=== PATIENT | female | born 1980 | race Caucasian/White ===

== ENCOUNTER → 2017-04-11 | Outpatient (REF) | payer OTHER ==
[~2017-04-11] MED LIST: MACR100C43 PO; PYRI1TAB5 PO
== END ==
LOC: M LAB REF 09:06
PROVIDERS: ATTEND Physician Assistant
DX: R30.0 Dysuria (principal)

== ENCOUNTER 2017-04-12 10:42 | Emergency (ER) | payer OTHER ==
[~2017-04-12] VITALS: Ht 157.5 cm; Wt 68.2 kg
[2017-04-12 10:42] VITALS: BP 123/73
[2017-04-12] MEDS ORDERED: PYRI1TAB5 PO (10:48)
[2017-04-12] MEDS ORDERED: MACR100C43 PO (10:48)
[2017-04-12] MEDS ORDERED: KETOROLAC TROMETHAMINE 10 MG TAB PO ONE (11:45)
[2017-04-12 12:03] LABS: BASO % 0.7 % (0.0-1.0); EOS # 0.2 K/mm3 (0.0-0.50); EOS % 5.3 % (0.0-3.0); LARGE UNSTAINED CELL # 0.1 K/mm3 (0.0-0.4); LARGE UNSTAINED CELL % 1.5 % (0.0-4.0); LYMPH # 1.2 K/mm3 (1.5-4.5); LYMPH % 25.1 % (24.0-44.0); MEAN CORPUSCULAR HEMOGLOBIN 29.8 pg (27.0-33.0); MEAN CORPUSCULAR HGB CONC 33.6 g/dl (32.0-36.5); MEAN CORPUSCULAR VOLUME 88.7 fl (80.0-96.0); MONO # 0.2 K/mm3 (0.0-0.8); MONO % 4.4 % (0.0-5.0); NEUTROPHILS # 2.8 K/mm3 (1.8-7.7); NEUTROPHILS % 62.9 % (36.0-66.0); PLATELET COUNT, AUTOMATED 222 k/mm3 (150-450); RED CELL DISTRIBUTION WIDTH 12.7 % (11.5-14.5); WHITE BLOOD COUNT 4.4 K/mm3 (4.0-10.0)
[2017-04-12 12:26] LABS: ANION GAP 5 MEQ/L (8-16); BLOOD UREA NITROGEN 9 MG/DL (7-18); CALCIUM LEVEL 9.2 MG/DL (8.5-10.1); CARBON DIOXIDE LEVEL 29 MEQ/L (21-32); CHLORIDE LEVEL 107 MEQ/L (98-107); CREATININE FOR GFR 0.77 MG/DL (0.55-1.02); GLOMERULAR FILTRATION RATE > 60.0 (>60); GLUCOSE, FASTING 89 MG/DL (70-105); POTASSIUM SERUM 4.2 MEQ/L (3.5-5.1); SODIUM LEVEL 141 MEQ/L (136-145)
--- NOTE | 2017-04-12 13:06 | REP ---
BILATERAL RENAL ULTRASOUND: 04/12/2017 CLINICAL HISTORY: Left flank pain. UTI diagnosed yesterday. Sonographic evaluation of the kidneys performed with no prior studies. The right kidney is 10.2 x 4.4 x 5.4 cm, and the left kidney is 9.9 x 4.6 x 4.5 cm. The cortical thickness and echogenicity are normal with the renal cortex less echogenic than the adjacent liver. There is no stone, cyst, solid mass, or hydronephrosis for either kidney. No perinephric edema or fluid. Bladder is not distended and cannot be evaluated. IMPRESSION: 1. Normal size and morphology for the kidneys with cortical thickness and echogenicity normal and no hydronephrosis, cyst, stone, or solid mass. No perinephric fluid. Bladder is empty and cannot be evaluated. Signed by Colton Us MD 04/12/2017 10:17 P
== END 2017-04-12 13:27 | disposition home or self-care (01) ==
LOC: M ED 10:42
DX: R30.0 Dysuria (principal); Z87.891 Personal history of nicotine dependence; Z79.899 Other long term (current) drug therapy

== ENCOUNTER → 2017-10-01 | Outpatient (CLI) | payer OTHER ==
[2017-10-02 12:40] LABS: HEPATITIS B SURFACE ANTIGEN NEGATIVE (NEGATIVE)
[2017-10-02 13:08] LABS: HEPATITIS C VIRUS ABY INDEX 0.1 INDEX (<0.8)
[2017-10-02 13:08] LABS: HIV 1&2 SCREEN CENTAUR NEGATIVE (NEGATIVE)
== END ==
LOC: M WUC 09:41
DX: Z11.3 Encounter for screening for infections with a predominantly sexual mode of transmission (principal)
CPT/HCPCS: 87340

== ENCOUNTER → 2018-08-22 | Outpatient (CLI) | payer OTHER ==
[2018-08-22 14:16] LABS: FREE T4 1.01 NG/DL (0.76-1.46); HCG, SERUM QUANTITATIVE < 1.0 MIU/ML; PROLACTIN 7.5 NG/ML
== END ==
LOC: M WUC 09:19
DX: N64.3 Galactorrhea not associated with childbirth (principal)
CPT/HCPCS: 84146

== ENCOUNTER → 2018-10-06 | Outpatient (CLI) | payer OTHER ==
[2018-10-08 10:54] LABS: HEPATITIS B SURFACE ANTIGEN NEGATIVE (NEGATIVE); HEPATITIS C VIRUS ABY INDEX 0.1 INDEX (<0.8); HIV 1&2 SCREEN CENTAUR NEGATIVE (NEGATIVE)
== END ==
LOC: M WUC 10:25
PROVIDERS: ATTEND Nurse Practitioner Women's Health
DX: N64.4 Mastodynia (principal)

== ENCOUNTER 2018-10-17 20:26 | Emergency (ER) | payer OTHER ==
[~2018-10-17] VITALS: Ht 157.5 cm; Wt 75.0 kg
[2018-10-17] MEDS ORDERED: ASPI325T25 PO (20:39)
[2018-10-17 21:00] LABS: BASO % 0.6 % (0.0-1.0); EOS # 0.3 10^3/uL (0.0-0.50); EOS % 4.2 % (0.0-3.0); HEMATOCRIT 37.5 % (36.0-47.0); LYMPH # 1.9 10^3/uL (1.5-4.5); LYMPH % 25.8 % (24.0-44.0); MEAN CORPUSCULAR HEMOGLOBIN 28.4 pg (27.0-33.0); MEAN CORPUSCULAR VOLUME 88.7 fl (80.0-96.0); MONO # 0.5 10^3/uL (0.0-0.8); MONO % 7.4 % (0.0-5.0); NEUTROPHILS # 4.5 10^3/uL (1.8-7.7); NEUTROPHILS % 61.9 % (36.0-66.0); PLATELET COUNT, AUTOMATED 235 10^3/uL (150-450); RED BLOOD COUNT 4.23 10^6/uL (4.00-5.40); WHITE BLOOD COUNT 7.2 10^3/uL (4.0-10.0)
[2018-10-17] MEDS ORDERED: dexameTHASONE 20 MG/5 ML VIAL (J1100) IV ONE (21:00)
[2018-10-17 21:21] LABS: HCG, SERUM QUALITATIVE NEGATIVE (NEGATIVE)
[2018-10-17 21:30] LABS: BLOOD UREA NITROGEN 18 MG/DL (7-18); CALCIUM LEVEL 8.2 MG/DL (8.5-10.1); CARBON DIOXIDE LEVEL 28 MEQ/L (21-32); CHLORIDE LEVEL 108 MEQ/L (98-107); CPK CREATINE PHOSPHOKINASE 102 U/L (26-192); CREATININE FOR GFR 0.85 MG/DL (0.55-1.30); GLOMERULAR FILTRATION RATE > 60.0 (>60); GLUCOSE, FASTING 112 MG/DL (70-100); MB/CK RELATIVE INDEX 1.18 (< OR =4); POTASSIUM SERUM 3.4 MEQ/L (3.5-5.1); SODIUM LEVEL 140 MEQ/L (136-145); TROPONIN I < 0.02 NG/ML (< 0.10)
[2018-10-17] MEDS ORDERED: chlorproMAZINE INJ 50MG/2ML AMP (J3230) IM ONE (22:15)
[2018-10-17] MEDS ORDERED: KETOROLAC 30 MG/ML VIAL (J1885) IV ONE (22:30)
[2018-10-17] MEDS ORDERED: NS 500 ML IV ONE (22:30)
[2018-10-17] MEDS ORDERED: POTASSIUM CHLORIDE 10 MEQ SR TABLET PO ONE (22:30)
[2018-10-18 00:25] VITALS: BP 94/57
--- NOTE | 2018-10-18 06:37 | ECGEPIP ---
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
--- NOTE | 2018-10-19 09:01 | REP ---
CHEST, TWO VIEWS: There is no evidence of acute infiltrate. No pleural effusion is seen. The heart is normal in size. The mediastinal silhouette is unremarkable. The visualized osseous structures are intact. IMPRESSION: No acute pulmonary disease. Electronically Signed by Howard Morgan MD 10/19/2018 06:45 P
== END 2018-10-18 00:26 | disposition home or self-care (01) ==
LOC: M ED 20:26
DX: R07.89 Other chest pain (principal); Z79.899 Other long term (current) drug therapy
CPT/HCPCS: 36415; 71046; 80048; 82550; 82553; 84484; 84703; 85025; 93005; 93041; 94760; 96374; 99285; J1885

== ENCOUNTER → 2020-06-17 | Outpatient (CLI) | payer SELFPAY ==
[~2020-06-17] MED LIST changes: +ASPI-255 PO
== END ==
LOC: M LABSMTC 13:35
PROVIDERS: ATTEND Pediatrics
DX: Z20.828 Contact with and (suspected) exposure to other viral communicable diseases (principal)

== ENCOUNTER → 2020-09-16 | Outpatient (CLI) | payer OTHER ==
[2020-09-16 07:36] LABS: HEMATOCRIT 41.3 % (36.0-47.0); MEAN CORPUSCULAR HEMOGLOBIN 28.3 pg (27.0-33.0); MEAN CORPUSCULAR HGB CONC 31.5 g/dl (32.0-36.5); PLATELET COUNT, AUTOMATED 237 10^3/uL (150-450); RED BLOOD COUNT 4.59 10^6/uL (4.00-5.40); WHITE BLOOD COUNT 3.7 10^3/uL (4.0-10.0)
[2020-09-16 08:09] LABS: ALBUMIN 3.9 GM/DL (3.2-5.2); ALT/SGPT 21 U/L (12-78); BILIRUBIN,TOTAL 0.5 MG/DL (0.2-1.0); BLOOD UREA NITROGEN 15 MG/DL (7-18); CALCIUM LEVEL 8.9 MG/DL (8.5-10.1); CARBON DIOXIDE LEVEL 29 MEQ/L (21-32); CHLORIDE LEVEL 107 MEQ/L (98-107); CHOLESTEROL LEVEL 151 MG/DL (<200); CHOLESTEROL RISK RATIO 2.323 (<5); CREATININE FOR GFR 0.91 MG/DL (0.55-1.30); FREE T4 0.98 NG/DL (0.76-1.46); GLOMERULAR FILTRATION RATE > 60.0 (>58); GLUCOSE, FASTING 89 MG/DL (70-100); HDL CHOLESTEROL 65 MG/DL (>40); LDL CHOLESTEROL 74 MG/DL (<100); NON-HDL-C 86 MG/DL; SODIUM LEVEL 140 MEQ/L (136-145); TRIGLYCERIDES LEVEL 60 MG/DL (<150)
[2020-09-16 11:23] LABS: TOTAL 25(OH) VITAMIN D 28.8 NG/ML (30.0-100.0)
[2020-09-16 12:00] LABS: HEMOGLOBIN A1c 5.2 %
== END ==
LOC: M LAB 06:43
PROVIDERS: ATTEND Physician Assistant
DX: R00.2 Palpitations (principal); Z13.1 Encounter for screening for diabetes mellitus; Z13.220 Encounter for screening for lipoid disorders

== ENCOUNTER → 2020-10-11 | Outpatient (REF) | payer OTHER | LOC: M SFHCWAGY 17:16 | PROVIDERS: ATTEND Advanced Practice Midwife | DX: Z12.4 Encounter for screening for malignant neoplasm of cervix (principal); Z01.419 Encounter for gynecological examination (general) (routine) without abnormal findings ==

== ENCOUNTER → 2020-11-09 | Outpatient (CLI) | payer OTHER ==
--- NOTE | 2020-11-09 16:46 | REPMRS ---
Patient History The patient states she had a clinical breast exam in October 2020. No known family history of cancer. 3D TOMOSYNTHESIS WAS PERFORMED. [facility] lifetime risk for breast cancer is 14.6%. Volpara breast density b. Digital Woman Screen Mammo: November 09, 2020 - Exam #: [id number] Bilateral CC and MLO view(s) were taken. Technologist: Clarice Henning RT FINDINGS: There are scattered fibroglandular densities. There has been no change in the appearance of the mammogram from the prior studies. There is a mild amount of residual fibroglandular tissue which is fairly symmetric. There is no interval development of dominant mass, architectural distortion, or clustered microcalcification suggestive of malignancy. Assessment: BI-RADS/ACR category 1 mammogram. Negative Mammogram. Recommendation Routine screening mammogram in 1 year (for women over age 40). This mammogram was interpreted with the aid of an FDA-approved computer-aided dectection system. Electronically Signed By: Howard Morgan MD 11/09/20 [id number]
== END ==
LOC: M WHC 15:51
PROVIDERS: ATTEND Advanced Practice Midwife
DX: Z12.31 Encounter for screening mammogram for malignant neoplasm of breast (principal)

== ENCOUNTER → 2021-05-25 | Outpatient (REF) | LOC: M EMP 13:32 | PROVIDERS: ATTEND Family Medicine | DX: Z11.52 Encounter for screening for COVID-19 (principal) ==

== ENCOUNTER → 2021-10-19 | Outpatient (REF) | LOC: M LABSMTC 10:19 | PROVIDERS: ATTEND Family Medicine | DX: Z20.822 Contact with and (suspected) exposure to COVID-19 (principal) ==

== ENCOUNTER → 2022-01-16 | Outpatient (REF) | payer OTHER | LOC: M PLALAB 13:23 | PROVIDERS: ATTEND Advanced Practice Midwife | DX: Z12.4 Encounter for screening for malignant neoplasm of cervix (principal); R87.810 Cervical high risk human papillomavirus (HPV) DNA test positive | CPT/HCPCS: 87624; G0123 ==

== ENCOUNTER → 2022-02-27 | Outpatient (CLI) | payer BC | LOC: M WHC 15:49 | PROVIDERS: ATTEND Advanced Practice Midwife | DX: Z12.31 Encounter for screening mammogram for malignant neoplasm of breast (principal); R10.2 Pelvic and perineal pain; Z97.5 Presence of (intrauterine) contraceptive device; Z79.3 Long term (current) use of hormonal contraceptives ==

== ENCOUNTER → 2022-02-27 | Outpatient (REF) | LOC: M EMP 09:43 | PROVIDERS: ATTEND Family Medicine | DX: Z11.52 Encounter for screening for COVID-19 (principal); Z20.822 Contact with and (suspected) exposure to COVID-19 ==

== ENCOUNTER 2022-03-26 14:43 | Emergency (ER) | payer BC ==
[~2022-03-26] VITALS: Ht 157.5 cm; Wt 79.6 kg
[2022-03-26] MEDS ORDERED: LORA-622 PO (15:07)
[2022-03-26 15:45] LABS: BASO % 0.5 % (0.0-1.0); EOS # 0.1 10^3/uL (0.0-0.5); EOS % 1.6 % (0.0-3.0); HEMATOCRIT 38.1 % (36.0-47.0); HEMOGLOBIN 12.2 g/dl (12.0-15.5); LYMPH # 1.4 10^3/uL (1.5-5.0); LYMPH % 23.8 % (24.0-44.0); MEAN CORPUSCULAR HEMOGLOBIN 28.8 pg (27.0-33.0); MEAN CORPUSCULAR VOLUME 89.9 fl (80.0-96.0); MONO # 0.4 10^3/uL (0.0-0.8); MONO % 7.2 % (2.0-8.0); NEUTROPHILS # 3.8 10^3/uL (1.5-8.5); NEUTROPHILS % 66.7 % (36.0-66.0); PLATELET COUNT, AUTOMATED 241 10^3/uL (150-450); RED BLOOD COUNT 4.24 10^6/uL (4.00-5.40); WHITE BLOOD COUNT 5.7 10^3/uL (4.0-10.0)
[2022-03-26 16:04] LABS: HCG, SERUM QUALITATIVE NEGATIVE (NEGATIVE)
[2022-03-26 16:12] LABS: CK-MB VALUE MASS 1.2 NG/ML (<3.6); CPK CREATINE PHOSPHOKINASE 109 U/L (26-192)
[2022-03-26 16:19] LABS: ALBUMIN 3.5 GM/DL (3.2-5.2); ALT/SGPT 17 U/L (12-78); BILIRUBIN,DIRECT < 0.1 MG/DL (0.0-0.2); BILIRUBIN,TOTAL 0.2 MG/DL (0.2-1.0); BLOOD UREA NITROGEN 23 MG/DL (7-18); CALCIUM LEVEL 8.3 MG/DL (8.5-10.1); CARBON DIOXIDE LEVEL 27 MEQ/L (21-32); CHLORIDE LEVEL 107 MEQ/L (98-107); CREATININE FOR GFR 0.92 MG/DL (0.55-1.30); GLOMERULAR FILTRATION RATE > 60.0 (>58); GLUCOSE, FASTING 88 MG/DL (70-100); LIPASE 100 U/L (73-393); NT-PRO BNP 77 PG/ML (<125); POTASSIUM SERUM 3.8 MEQ/L (3.5-5.1); SODIUM LEVEL 141 MEQ/L (136-145); TOTAL PROTEIN 6.8 GM/DL (6.4-8.2)
[2022-03-26] MEDS ORDERED: ISOVUE-370 76% 100ML VIAL As Ordered ONE (17:12)
[2022-03-26 18:36] LABS: CK-MB VALUE MASS < 1.0 NG/ML (<3.6); CPK CREATINE PHOSPHOKINASE 93 U/L (26-192); MB/CK RELATIVE INDEX 1.08 (< OR =4)
[2022-03-26 18:49] LABS: RSV AMPLIFICATION NEGATIVE (NEGATIVE)
[2022-03-26] MEDS ORDERED: KETOROLAC 30 MG/ML 1ML VIAL IV ONE (19:00)
[2022-03-26 19:54] VITALS: BP 118/68
== END 2022-03-26 19:55 | disposition home or self-care (01) ==
LOC: M ED 14:43
DX: R07.89 Other chest pain (principal); Z82.49 Family history of ischemic heart disease and other diseases of the circulatory system; Z97.5 Presence of (intrauterine) contraceptive device; Z79.899 Other long term (current) drug therapy; Z87.891 Personal history of nicotine dependence
CPT/HCPCS: 71046; 71275; 80048; 80076; 82550; 82553; 83690; 83880; 84439; 84443; 84484; 84703; 85025; 87631; 93005; 96374; 99284; J1885; Q9967

== ENCOUNTER → 2022-06-10 | Outpatient (CLI) | payer BC, OTHER ==
[~2022-06-10] MED LIST changes: +LORA-622 PO; +RA M500C PO
== END ==
LOC: M LABSMTC 10:48
PROVIDERS: ATTEND Anesthesiology
DX: Z01.812 Encounter for preprocedural laboratory examination (principal); Z20.822 Contact with and (suspected) exposure to COVID-19

== ENCOUNTER 2022-06-13 06:09 | Day surgery (SDC) | payer BC ==
[~2022-06-13] VITALS: Ht 157.5 cm; Wt 80.3 kg
[2022-06-13] MEDS ORDERED: LR 1,000 ML IV SCH ×2 (06:20→08:40)
[2022-06-13 06:43] LABS: HEMATOCRIT 39.8 % (36.0-47.0); HEMOGLOBIN 12.9 g/dl (12.0-15.5); MEAN CORPUSCULAR HEMOGLOBIN 29.1 pg (27.0-33.0); MEAN CORPUSCULAR HGB CONC 32.4 g/dl (32.0-36.5); MEAN CORPUSCULAR VOLUME 89.6 fl (80.0-96.0); PLATELET COUNT, AUTOMATED 252 10^3/uL (150-450); RED BLOOD COUNT 4.44 10^6/uL (4.00-5.40); WHITE BLOOD COUNT 4.2 10^3/uL (4.0-10.0)
[2022-06-13 06:59] LABS: HCG, SERUM QUALITATIVE NEGATIVE (NEGATIVE)
[2022-06-13] MEDS ORDERED: BUPIVACAINE HCL 0.25% 10ML VIAL As Ordered ONE (07:07)
[2022-06-13] MEDS ORDERED: SCOPOLAMINE 1MG TRANSDERMAL PATCH TOP ONE (07:15)
[2022-06-13] MEDS ORDERED: fentaNYL 100 MCG/2 ML INJECTION As Ordered ONE (07:46)
[2022-06-13] MEDS ORDERED: ONDANSETRON 4MG 2ML VIAL As Ordered ONE (07:46)
[2022-06-13] MEDS ORDERED: ROCURONIUM BROMIDE 50 MG/5 ML VIAL As Ordered ONE (07:46)
[2022-06-13] MEDS ORDERED: dexameTHASONE 4 MG/ML 1ML VIAL (J1100 PER 1MG) As Ordered ONE (07:46)
[2022-06-13] MEDS ORDERED: ACETAMINOPHEN 1000MG 100ML IV BTL (OFIRMEV) (J0131 PER 10MG) As Ordered ONE (07:46)
[2022-06-13] MEDS ORDERED: LIDOCAINE 2% 100MG/5ML SDV (FOR ANES.) As Ordered ONE (07:46)
[2022-06-13] MEDS ORDERED: propofoL 200 MG/20 ML VIAL As Ordered ONE (07:46)
[2022-06-13] MEDS ORDERED: SUGAMMADEX SODIUM 500 MG/5 ML VIAL (BRIDION) As Ordered ONE (07:46)
[2022-06-13] MEDS ORDERED: METOCLOPRAMIDE INJ 10MG/2ML VIAL (J2765 PER 1) As Ordered ONE (07:46)
[2022-06-13] MEDS ORDERED: MIDAZOLAM INJ 2MG/2ML VIAL (J2250 PER 1MG) As Ordered ONE (07:46)
[2022-06-13] MEDS ORDERED: KETOROLAC 60MG 2ML VIAL As Ordered ONE (07:46)
[2022-06-13] MEDS ORDERED: HYDROmorphone HCL 2MG/ML 1ML VIAL As Ordered ONE (07:59)
[2022-06-13] MEDS ORDERED: SILVER NITRATE APPLICATOR (1 = QTY 10) As Ordered ONE (08:24)
[2022-06-13] MEDS ORDERED: oxyCODONE 5MG TAB PO PRN (08:40)
[2022-06-13] MEDS ORDERED: ONDANSETRON 4MG 2ML VIAL IV PRN (08:40)
[2022-06-13] MEDS ORDERED: fentaNYL 100 MCG/2 ML INJECTION IV PRN (08:40)
[2022-06-13] MEDS ORDERED: COLA100C5 PO (09:16)
[2022-06-13] MEDS ORDERED: IBUP80TA PO (09:16)
[2022-06-13] MEDS ORDERED: OXYC1TAB23 PO (09:17)
[2022-06-13 12:00] VITALS: BP 125/66
== END 2022-06-13 12:50 | disposition home or self-care (01) ==
LOC: M SDC 06:09
PROVIDERS: ATTEND Obstetrics & Gynecology
DX: Z30.2 Encounter for sterilization (principal); Z30.432 Encounter for removal of intrauterine contraceptive device; N93.9 Abnormal uterine and vaginal bleeding, unspecified; J30.1 Allergic rhinitis due to pollen; Z87.891 Personal history of nicotine dependence; Z79.899 Other long term (current) drug therapy
CPT/HCPCS: 36415; 58301; 58563; 58661; 84703; 85027; 86850; 86900; 86901; 88300; 88302; J0131; J1100; J1170; J1885; J2250; J2405; J2765; J3010

== ENCOUNTER 2022-12-21 11:21 | Day surgery (SDC) | payer BC ==
[~2022-12-21] VITALS: Ht 157.5 cm; Wt 79.3 kg
[~2022-12-21 11:21] MED LIST changes: +COLA100C5 PO; +IBUP80TA PO; +NS 1,000 ML IV ONE; +OXYC1TAB23 PO; +PANT20TA6 PO; +VITMTA PO
[2022-12-21] MEDS ORDERED: fentaNYL 100 MCG/2 ML INJECTION As Ordered ONE (14:19)
[2022-12-21] MEDS ORDERED: propofoL 200 MG/20 ML VIAL As Ordered ONE (14:19)
[2022-12-21] MEDS ORDERED: LIDOCAINE 2% 100MG/5ML SDV (FOR ANES.) As Ordered ONE (14:19)
[2022-12-21] MEDS ORDERED: KETOROLAC 60MG 2ML VIAL As Ordered ONE (14:22)
[2022-12-21 14:45] VITALS: BP 123/76
== END 2022-12-21 15:02 | disposition home or self-care (01) ==
LOC: M OPP 11:21
PROVIDERS: ATTEND Internal Medicine Gastroenterology
DX: K29.70 Gastritis, unspecified, without bleeding (principal); R11.0 Nausea; R12 Heartburn
CPT/HCPCS: 43239; 88305; J1885; J3010

== ENCOUNTER 2023-01-18 07:22 | Emergency (ER) | payer BC ==
[~2023-01-18] VITALS: Ht 157.5 cm; Wt 79.6 kg
[~2023-01-18 07:22] MED LIST changes: -NS 1,000 ML IV ONE
[2023-01-18] MEDS ORDERED: ONDANSETRON 4MG 2ML VIAL IV ONE (08:05)
[2023-01-18] MEDS ORDERED: GI COCKTAIL 50ML BTL(HYOSCYAMINE/MAALOX/LIDOCAINE VISCOUS)(1:3:1) PO ONE (08:05)
[2023-01-18 08:41] LABS: BASO % 0.2 % (0.0-1.0); EOS # 0.1 10^3/uL (0.0-0.5); EOS % 2.6 % (0.0-3.0); HEMATOCRIT 41.4 % (36.0-47.0); HEMOGLOBIN 13.3 g/dl (12.0-15.5); LYMPH # 0.4 10^3/uL (1.5-5.0); LYMPH % 7.7 % (24.0-44.0); MEAN CORPUSCULAR HEMOGLOBIN 28.5 pg (27.0-33.0); MEAN CORPUSCULAR HGB CONC 32.1 g/dl (32.0-36.5); MEAN CORPUSCULAR VOLUME 88.7 fl (80.0-96.0); MONO # 0.4 10^3/uL (0.0-0.8); MONO % 8.9 % (2.0-8.0); NEUTROPHILS % 80.4 % (36.0-66.0); PLATELET COUNT, AUTOMATED 224 10^3/uL (150-450); RED BLOOD COUNT 4.67 10^6/uL (4.00-5.40)
[2023-01-18] MEDS: GASTROGRAFIN SOLUTION 30ML PO SCH ×2 (08:41→09:15)
[2023-01-18] MEDS: NS 1,000 ML IV SCH ×3 (08:41→10:10)
[2023-01-18 09:15] LABS: ALBUMIN 3.7 G/DL (3.2-5.2); BILIRUBIN,DIRECT 0.2 MG/DL (<0.4); BILIRUBIN,TOTAL 0.4 MG/DL (0.3-1.2); TOTAL PROTEIN 6.4 G/DL (5.7-8.2)
[2023-01-18 09:41] LABS: INR 0.97; PROTHROMBIN TIME 13.1 SECONDS (12.5-14.5)
[2023-01-18] MEDS ORDERED: ISOVUE-370 76% 100ML VIAL As Ordered ONE (10:15)
[2023-01-18] MEDS ORDERED: METOCLOPRAMIDE 10MG TAB PO ONE (11:20)
[2023-01-18] MEDS ORDERED: ACETAMINOPHEN 325 MG TAB PO ONE (11:20)
[2023-01-18 11:37] VITALS: BP 126/55
== END 2023-01-18 11:39 | disposition home or self-care (01) ==
LOC: M ED 07:22
DX: R10.9 Unspecified abdominal pain (principal); K27.9 Peptic ulcer, site unspecified, unspecified as acute or chronic, without hemorrhage or perforation; Z79.899 Other long term (current) drug therapy
CPT/HCPCS: 74176; 80076; 82150; 83690; 85025; 85610; 96374; 99284; J2405

== ENCOUNTER → 2023-01-24 | Outpatient (REF) | payer BC | LOC: M LAB REF 09:47 | PROVIDERS: ATTEND Nurse Practitioner Family | DX: R19.7 Diarrhea, unspecified (principal) ==

== ENCOUNTER → 2023-02-11 | Outpatient (CLI) | payer BC | LOC: M WHC 15:16 | PROVIDERS: ATTEND Advanced Practice Midwife | DX: Z12.31 Encounter for screening mammogram for malignant neoplasm of breast (principal) ==

== ENCOUNTER → 2023-02-18 | Outpatient (REF) | LOC: M EMP 09:44 | PROVIDERS: ATTEND Family Medicine | DX: Z11.52 Encounter for screening for COVID-19 (principal); U07.1 COVID-19 ==

== ENCOUNTER → 2023-03-05 | Outpatient (CLI) | payer BC | LOC: M RAD 06:27 | PROVIDERS: ATTEND Nurse Practitioner Family | DX: R10.11 Right upper quadrant pain (principal) ==

== ENCOUNTER → 2023-04-24 | Outpatient (CLI) | payer BC | LOC: M RAD 11:29 | PROVIDERS: ATTEND Nurse Practitioner Family | DX: R10.11 Right upper quadrant pain (principal); K82.8 Other specified diseases of gallbladder; R11.0 Nausea | CPT/HCPCS: 78227; A9537 ==

== ENCOUNTER → 2023-12-11 | Outpatient (CLI) | payer BC ==
[2023-12-11 07:15] LABS: BASO % 0.6 % (0.0-1.0); EOS # 0.2 10^3/uL (0.0-0.5); EOS % 4.3 % (0.0-3.0); HEMATOCRIT 39.5 % (36.0-47.0); HEMOGLOBIN 12.8 g/dl (12.0-15.5); LYMPH # 1.1 10^3/uL (1.5-5.0); LYMPH % 23.6 % (24.0-44.0); MEAN CORPUSCULAR HEMOGLOBIN 28.6 pg (27.0-33.0); MEAN CORPUSCULAR HGB CONC 32.4 g/dl (32.0-36.5); MEAN CORPUSCULAR VOLUME 88.2 fl (80.0-96.0); MONO # 0.3 10^3/uL (0.0-0.8); MONO % 6.6 % (2.0-8.0); NEUTROPHILS % 64.7 % (36.0-66.0); PLATELET COUNT, AUTOMATED 261 10^3/uL (150-450); RED BLOOD COUNT 4.48 10^6/uL (4.00-5.40); WHITE BLOOD COUNT 4.7 10^3/uL (4.0-10.0)
[2023-12-11 07:32] LABS: TOTAL IRON BINDING CAPACITY 298 UG/DL (250-425)
[2023-12-11 07:33] LABS: ALBUMIN 3.7 G/DL (3.2-5.2); ALKALINE PHOSPHATASE 83 U/L (46-116); ALT/SGPT 14 U/L (7.0-40); AST/SGOT 11 U/L (<34); BILIRUBIN,TOTAL 0.5 MG/DL (0.3-1.2); BLOOD UREA NITROGEN 16 MG/DL (9-23); CALCIUM LEVEL 8.7 MG/DL (8.5-10.1); CARBON DIOXIDE LEVEL 27 MMOL/L (20-31); CHLORIDE LEVEL 107 MMOL/L (98-107); CHOLESTEROL LEVEL 140 MG/DL (<200); CHOLESTEROL RISK RATIO 2.96 (<5); CREATININE FOR GFR 0.83 MG/DL (0.55-1.30); FERRITIN 76.5 NG/ML (7.3-270.7); FREE T4 0.88 NG/DL (0.89-1.76); GLOMERULAR FILTRATION RATE > 60.0 (>58); GLUCOSE, FASTING 91 MG/DL (60-100); HDL CHOLESTEROL 47.2 MG/DL (>40); IRON (FE) 80 UG/DL (50-170); LDL CHOLESTEROL 76.4 MG/DL (<100); MAGNESIUM LEVEL 2.1 MG/DL (1.8-2.4); NON-HDL-C 92.8 MG/DL; PERCENT SATURATION 26.8 % (13.2-45.0); POTASSIUM SERUM 4.3 MMOL/L (3.5-5.1); SODIUM LEVEL 140 MMOL/L (136-145); THYROID STIMULATING HORMONE 2.036 uIU/ML (0.55-4.78); TOTAL 25(OH) VITAMIN D 32.9 NG/ML (20.0-100.0); TOTAL PROTEIN 6.8 G/DL (5.7-8.2); TRIGLYCERIDES LEVEL 82 MG/DL (<150)
[2023-12-11 07:34] LABS: FOLATE > 24.0 NG/ML (>5.4); VITAMIN B12 LEVEL 945 PG/ML (211-911)
[2023-12-11 07:54] LABS: HEMOGLOBIN A1c 5.4 % (4.0-6.0)
== END ==
LOC: M LAB 06:33
PROVIDERS: ATTEND Registered Nurse
DX: R53.83 Other fatigue (principal)

== ENCOUNTER → 2024-03-20 | Outpatient (CLI) | payer BC | LOC: M RAD 08:51 | PROVIDERS: ATTEND Registered Nurse | DX: M79.672 Pain in left foot (principal) ==

== ENCOUNTER → 2024-05-15 | Outpatient (REF) | payer BC ==
[2024-05-20 13:52] LABS: HPV APTIMA Not Detected (Not Detected)
== END ==
LOC: M SFHCWAGY 16:53
PROVIDERS: ATTEND Advanced Practice Midwife
DX: Z12.4 Encounter for screening for malignant neoplasm of cervix (principal)
CPT/HCPCS: 87624; G0123

== ENCOUNTER → 2024-05-15 | Outpatient (CLI) | payer BC | LOC: M WHC 14:38 | PROVIDERS: ATTEND Advanced Practice Midwife | DX: Z12.31 Encounter for screening mammogram for malignant neoplasm of breast (principal) ==

== ENCOUNTER → 2024-05-21 | Outpatient (CLI) | payer BC | LOC: M WHC 10:18 | PROVIDERS: ATTEND Advanced Practice Midwife | DX: N92.0 Excessive and frequent menstruation with regular cycle (principal) ==

== ENCOUNTER → 2025-08-27 | Outpatient (REF) | payer BC ==
[~2025-08-27] MED LIST changes: +LORA-1164 PO; -LORA-622 PO
[2025-08-31 14:17] LABS: HPV APTIMA Not Detected (Not Detected)
== END ==
LOC: M SFHCWAGY 10:27
PROVIDERS: ATTEND Physician Assistant
DX: Z12.4 Encounter for screening for malignant neoplasm of cervix (principal)
CPT/HCPCS: 87624; G0123

== ENCOUNTER → 2025-08-27 | Outpatient (CLI) | payer BC | LOC: M WHC 08:00 | PROVIDERS: ATTEND Physician Assistant | DX: Z12.31 Encounter for screening mammogram for malignant neoplasm of breast (principal); R92.323 Mammographic fibroglandular density, bilateral breasts ==